=== PATIENT | female | born 1970 | race African-American/Black ===

== ENCOUNTER 2017-01-07 17:23 | Observation (INO) | payer SELFPAY ==
[~2017-01-07] VITALS: Ht 165.1 cm; Wt 74.6 kg
[~2017-01-07 17:23] MED LIST: IBUP600T26 PO; METH750T2 PO
[2017-01-07 19:26] VITALS: BP 119/75; PULSE 94; RESP 18; O2SAT 100
--- NOTE | 2017-01-07 19:44 | PD ---
HPI Chief Complaint: Chest Pain Time Seen by Provider: 19:38 Travel History International Travel<30 days: No Contact w/Intl Traveler<30days: No Traveled to known affect area: No History of Present Illness HPI 46-year-old female presents to the emergency department for evaluation of chest pain that began about 7 hours ago. The patient states that just prior to going into work she began to have midsternal chest pressure. States that has been worsening over the past several hours. States that she had her bring her up to our ambulance bay on the back of his bicycle and when she coughed the bicycle and started walking to the doors she became lightheaded and passed out. She states that the chest pain is aggravated with talking. Denies any alleviating factors. Denies any shortness of breath, difficulty breathing, diaphoresis, nausea, vomiting, abdominal pain. Denies any recent travel or surgeries. She has a remote history of tobacco use but no longer smokes cigarettes. Denies any history of heart disease, MO, high blood pressure or hyperlipidemia. Denies any family history of heart disease or MO. She does admit to multiple stressors in her life and states that she has about 2 syncopal events every month for the last year but she has never had chest pain before today. Denies , she is postmenopausal. No other complaints. FOR[facility]LY [facility], LATER [facility] Past Medical History Medical History: Denies Significant Hx ?: Not Past Surgical History Surgical History: No Previous Surgery Social History Alcohol Use: No Tobacco Use: Yes Allergies-Medications (Allergen,Severity, Reaction): Coded Allergies: No Known Allergies (Unverified , 01/07/17) Reported Meds & Prescriptions Reported Meds & Active Scripts Active Review of Systems Except as stated in HPI: all other systems reviewed are Neg Physical Exam Narrative GENERAL: Well-nourished and well-developed pleasant female patient in no acute distress who is nontoxic appearing. SKIN: Warm and dry. HEAD: Normocephalic and atraumatic. EYES: No injection, drainage, or hyphema noted. PERRLA. EOMI. ENT: No nasal drainage noted. Oropharynx is clear. NECK: Supple and the trachea is midline. CARDIOVASCULAR: Regular rate and rhythm. RESPIRATORY: Breath sounds are equal bilaterally with no accessory muscle use, wheezing, rhonchi, or crackles. GASTROINTESTINAL: Abdomen is soft, non-tender, and nondistended. MUSCULOSKELETAL: No obvious deformities, swelling, cyanosis, or ecchymosis is present throughout the upper and lower extremities. Patient has full range of motion without any signs of neurovascular compromise. NEUROLOGICAL: Awake, alert, and oriented. Normal speech and gait. Cranial nerves are grossly intact. Data Data Last Documented VS Vital Signs Date Time Temp Pulse Resp B/P Pulse Ox O2 Delivery O2 Flow Rate FiO2 01/07/17 20:16 98 01/07/17 20:16 Room Air 01/07/17 19:26 94 18 119/75 Orders Electrocardiogram (01/07/17 19:34) Ckmb (Isoenzyme) Profile (01/07/17 19:34) Complete Blood Count With Diff (01/07/17 19:34) Comprehensive Metabolic Panel (01/07/17 19:34) D-Dimer (01/07/17 19:34) Magnesium (Mg) (01/07/17 19:34) Prothrombin Time / Inr (Pt) (01/07/17 19:34) Act Partial Throm Time (Ptt) (01/07/17 19:34) Troponin I (01/07/17 19:34) Chest, Single Ap (01/07/17 19:34) Ecg Monitoring (01/07/17 19:34) Bilateral Bp Monitoring (01/07/17 19:34) Iv Access Insert/Monitor (01/07/17 19:34) Oximetry (01/07/17 19:34) Oxygen Administration (01/07/17 19:34) Aspirin Chew (Aspirin Chew) (01/07/17 19:45) Sodium Chloride 0.9% Flush (Ns Flush) (01/07/17 19:45) Ondansetron Inj (Zofran Inj) (01/07/17 19:45) Morphine Inj (Morphine Inj) (01/07/17 20:00) CKMB (01/07/17 20:05) CKMB% (01/07/17 20:05) Admit Order (Ed Use Only) (01/07/17 21:11) Labs Laboratory Tests Test 01/07/17 20:05 White Blood Count 8.3 TH/MM3 Red Blood Count 4.31 MIL/MM3 Hemoglobin 13.8 GM/DL Hematocrit 40.5 % Mean Corpuscular Volume 94.1 FL Mean Corpuscular Hemoglobin 32.2 PG Mean Corpuscular Hemoglobin 34.2 % Concent Red Cell Distribution Width 12.9 % Platelet Count 321 TH/MM3 Mean Platelet Volume 7.6 FL Neutrophils (%) (Auto) 62.4 % Lymphocytes (%) (Auto) 31.7 % Monocytes (%) (Auto) 5.2 % Eosinophils (%) (Auto) 0.2 % Basophils (%) (Auto) 0.5 % Neutrophils # (Auto) 5.2 TH/MM3 Lymphocytes # (Auto) 2.6 TH/MM3 Monocytes # (Auto) 0.4 TH/MM3 Eosinophils # (Auto) 0.0 TH/MM3 Basophils # (Auto) 0.0 TH/MM3 CBC Comment DIFF FINAL Differential Comment Prothrombin Time 10.5 SEC Prothromb Time International 1.0 RATIO Ratio Activated Partial 24.2 SEC Thromboplast Time D-Dimer Quantitative (PE/DVT) 0.19 MG/L FEU Sodium Level 138 MEQ/L Potassium Level 3.4 MEQ/L Chloride Level 108 MEQ/L Carbon Dioxide Level 21.9 MEQ/L Anion Gap 8 MEQ/L Blood Urea Nitrogen 12 MG/DL Creatinine 0.81 MG/DL Estimat Glomerular Filtration 92 ML/MIN Rate Random Glucose 78 MG/DL Calcium Level 9.3 MG/DL Magnesium Level 2.2 MG/DL Total Bilirubin 0.4 MG/DL Aspartate Amino Transf 18 U/L (AST/SGOT) Alanine Aminotransferase 28 U/L (ALT/SGPT) Alkaline Phosphatase 128 U/L Total Creatine Kinase 196 U/L Creatine Kinase MB 2.5 NG/ML Creatine Kinase MB % 1.3 % Troponin I LESS THAN 0.02 NG/ML Total Protein 7.9 GM/DL Albumin 3.8 GM/DL [facility] Medical Decision Making Medical Screen Exam Complete: Yes Emergency Medical Condition: Yes Differential Diagnosis ACS versus pleurisy versus PE versus anxiety Narrative Course 46-year-old female presents to the emergency room for evaluation of midsternal chest pressure that began earlier today. Patient is afebrile, vital signs are stable. She did experience an episode of syncope as well. Physical examination is unremarkable. IV access is obtained, labs been drawn and sent. Patient is administered aspirin and morphine. EKG shows sinus rhythm with no acute ST elevations or depressions. Patient signed out to my attending physician Dr. Ibarra who will assume care of the patient and disposition. Flor William Jan 07, 2017 19:44
[2017-01-07] MEDS ORDERED: MORPHINE SULFATE 4 MG/ML INJ IV PUSH ONE (19:45)
[2017-01-07] MEDS ORDERED: ASPIRIN 81 MG CHEW TAB PO ONE (19:45)
[2017-01-07] MEDS ORDERED: SODIUM CHLORIDE 0.9% FLUSH 10 ML FLUSH IVF PRN (19:45)
[2017-01-07] MEDS ORDERED: ONDANSETRON HCL 4 MG/2 ML VIAL IV PUSH ONE (19:45)
[2017-01-07] MEDS ORDERED: MORPHINE SULFATE 8 MG/ML INJ IV PUSH ONE (20:00)
[2017-01-07 20:16] VITALS: O2SAT 98
--- NOTE | 2017-01-07 20:28 | RADRPT ---
EXAM DATE/TIME: 01/07/2017 19:51 [facility] COMPARISON: No previous studies available for comparison. INDICATIONS : Chest pain MEDICAL HISTORY : None. SURGICAL HISTORY : None. ENCOUNTER: Initial ACUITY: 3 days PAIN SCORE: 7/10 LOCATION: Bilateral chest FINDINGS: A single view of the chest demonstrates the lungs to be symmetrically aerated without evidence of mas s, infiltrate or effusion. The cardiomediastinal contours are unremarkable. Osseous structures are intact. CONCLUSION: No acute disease. Haja Kahn MD on January 07, 2017 at 20:26 Board Certified Radiologist. This report was verified electronically.
[2017-01-07 20:30] LABS: AUTOMATED NEUTROPHIL # 5.2 TH/MM3 (1.8-7.7); BASOPHIL % 0.5 % (0.0-2.0); EOSINOPHIL % 0.2 % (0.0-4.0); HEMATOCRIT 40.5 % (35.0-46.0); HEMO FLAGS DIFF FINAL; LYMPH % 31.7 % (9.0-44.0); LYMPHOCYTE # 2.6 TH/MM3 (1.0-4.8); MEAN CELL VOLUME 94.1 FL (80.0-100.0); MEAN CORPUSCULAR HEMOGLOBIN 32.2 PG (27.0-34.0); MEAN CORPUSCULAR HGB CONC 34.2 % (32.0-36.0); MONO % 5.2 % (0.0-8.0); NEUT % 62.4 % (16.0-70.0); PLATELET COUNT 321 TH/MM3 (150-450); RED BLOOD COUNT 4.31 MIL/MM3 (4.00-5.30); RED CELL DISTRIBUTION WIDTH 12.9 % (11.6-17.2); WHITE BLOOD COUNT 8.3 TH/MM3 (4.0-11.0)
[2017-01-07 20:52] LABS: ANION GAP 8 MEQ/L (5-15); AST (GOT) 18 U/L (15-37); BICARBONATE 21.9 MEQ/L (21.0-32.0); BLOOD UREA NITROGEN 12 MG/DL (7-18); CHLORIDE 108 MEQ/L (98-107); GLOMERULAR FILTRATION RATE 92 ML/MIN (>89); MAGNESIUM 2.2 MG/DL (1.5-2.5); POTASSIUM 3.4 MEQ/L (3.5-5.1); SODIUM (NA) 138 MEQ/L (136-145)
[2017-01-07 20:53] LABS: ALT (GPT) 28 U/L (10-53)
[2017-01-07 20:56] LABS: ALKALINE PHOSPHATASE 128 U/L (45-117); CREATINE KINASE 196 U/L (26-192); TOTAL BILIRUBIN ADULT 0.4 MG/DL (0.2-1.0)
[2017-01-07 20:59] LABS: APTT (PATIENT) 24.2 SEC (24.3-30.1); PROTHROMBIN TIME - PATIENT 10.5 SEC (9.8-11.6)
[2017-01-07 21:09] LABS: CKMB 2.5 NG/ML (0.5-3.6)
--- NOTE | 2017-01-07 21:11 | PD ---
Data Data Last Documented VS Vital Signs Date Time Temp Pulse Resp B/P Pulse Ox O2 Delivery O2 Flow Rate FiO2 01/07/17 20:16 98 01/07/17 20:16 Room Air 01/07/17 19:26 94 18 119/75 Orders Electrocardiogram (01/07/17 19:34) Ckmb (Isoenzyme) Profile (01/07/17 19:34) Complete Blood Count With Diff (01/07/17 19:34) Comprehensive Metabolic Panel (01/07/17 19:34) D-Dimer (01/07/17 19:34) Magnesium (Mg) (01/07/17 19:34) Prothrombin Time / Inr (Pt) (01/07/17 19:34) Act Partial Throm Time (Ptt) (01/07/17 19:34) Troponin I (01/07/17 19:34) Chest, Single Ap (01/07/17 19:34) Ecg Monitoring (01/07/17 19:34) Bilateral Bp Monitoring (01/07/17 19:34) Iv Access Insert/Monitor (01/07/17 19:34) Oximetry (01/07/17 19:34) Oxygen Administration (01/07/17 19:34) Aspirin Chew (Aspirin Chew) (01/07/17 19:45) Sodium Chloride 0.9% Flush (Ns Flush) (01/07/17 19:45) Ondansetron Inj (Zofran Inj) (01/07/17 19:45) Morphine Inj (Morphine Inj) (01/07/17 20:00) CKMB (01/07/17 20:05) CKMB% (01/07/17 20:05) Labs Laboratory Tests Test 01/07/17 20:05 White Blood Count 8.3 TH/MM3 Red Blood Count 4.31 MIL/MM3 Hemoglobin 13.8 GM/DL Hematocrit 40.5 % Mean Corpuscular Volume 94.1 FL Mean Corpuscular Hemoglobin 32.2 PG Mean Corpuscular Hemoglobin 34.2 % Concent Red Cell Distribution Width 12.9 % Platelet Count 321 TH/MM3 Mean Platelet Volume 7.6 FL Neutrophils (%) (Auto) 62.4 % Lymphocytes (%) (Auto) 31.7 % Monocytes (%) (Auto) 5.2 % Eosinophils (%) (Auto) 0.2 % Basophils (%) (Auto) 0.5 % Neutrophils # (Auto) 5.2 TH/MM3 Lymphocytes # (Auto) 2.6 TH/MM3 Monocytes # (Auto) 0.4 TH/MM3 Eosinophils # (Auto) 0.0 TH/MM3 Basophils # (Auto) 0.0 TH/MM3 CBC Comment DIFF FINAL Differential Comment Prothrombin Time 10.5 SEC Prothromb Time International 1.0 RATIO Ratio Activated Partial 24.2 SEC Thromboplast Time D-Dimer Quantitative (PE/DVT) 0.19 MG/L FEU Sodium Level 138 MEQ/L Potassium Level 3.4 MEQ/L Chloride Level 108 MEQ/L Carbon Dioxide Level 21.9 MEQ/L Anion Gap 8 MEQ/L Blood Urea Nitrogen 12 MG/DL Creatinine 0.81 MG/DL Estimat Glomerular Filtration 92 ML/MIN Rate Random Glucose 78 MG/DL Calcium Level 9.3 MG/DL Magnesium Level 2.2 MG/DL Total Bilirubin 0.4 MG/DL Aspartate Amino Transf 18 U/L (AST/SGOT) Alanine Aminotransferase 28 U/L (ALT/SGPT) Alkaline Phosphatase 128 U/L Total Creatine Kinase 196 U/L Troponin I LESS THAN 0.02 NG/ML Total Protein 7.9 GM/DL Albumin 3.8 GM/DL [facility] Supervised Visit with SHIRLENE: Yes Narrative Course I, Dr. Ibarra, have reviewed the advance practice practitioner's documentation and am in agreement, met with the patient face to face, made the diagnosis, and the medical decision making was done by me. See her note for further details. Briefly this a 46-year-old female who is here for evaluation of substernal chest pain. Pain is described as pressure, moderate, worse with talking. No dyspnea. No known history of cardiac disease. She reports extensive family history of heart disease. She told my PA that she has passed out about twice a month for the last year, however she tells me that she believes she may have passed out twice this year. She believes she may have had a syncopal episode today, but is not really sure. Currently the pain is 5 out of 10. On my assessment the patient is sleeping comfortably. Her EKG shows sinus, rate 80, normal axis, normal intervals, nonspecific T-wave abnormality, no ST segment abnormalities. Vital signs are within normal limits. CBC is unremarkable. CMP is essentially unremarkable. Cardiac enzymes are negative. D-dimer is negative at 0.19. Chest x-ray shows no acute disease. The patient was provided aspirin. She'll be admitted to the chest pain center for further cardiac evaluation. Diagnosis Primary Impression: Chest pain Qualified Code: R07.9 - Chest pain, unspecified type Admitting Information Admitting Physician Requests: Prince Gustafson MD Jan 07, 2017 21:11
[2017-01-07 22:34] VITALS: BP 119/75
[2017-01-07 22:42] VITALS: BP 129/83; PULSE 72; RESP 18; O2SAT 97
[2017-01-07] MEDS ORDERED: SODIUM CHLORIDE 0.9% FLUSH 10 ML FLUSH IV FLUSH PRN (23:15)
[2017-01-08] VITALS (16 sets, daily range): BP systolic 97–109; BP diastolic 55–71; PULSE 57–78; RESP 15–18; TEMP 97.6–99; O2SAT 98–100
[2017-01-08 00:31] LABS: CREATINE KINASE 183 U/L (26-192)
[2017-01-08 02:58] LABS: CREATINE KINASE 160 U/L (26-192)
[2017-01-08 03:14] LABS: CKMB 1.8 NG/ML (0.5-3.6)
--- NOTE | 2017-01-08 08:00 | EKG ---
Date Performed: 01/07/2017 Time Performed: 23:19:12 PTAGE: 46 years EKG: Sinus rhythm BORDERLINE ECG PREVIOUS TRACING : 01/07/2017 23.18 Since previous tracing, no significant change noted DOCTOR: Kevin Smith Interpretating Date/Time 01/08/2017 08:11:42
--- NOTE | 2017-01-08 08:00 | EKG ---
Date Performed: 01/07/2017 Time Performed: 19:35:38 PTAGE: 46 years EKG: Sinus rhythm NONSPECIFIC T-WAVE ABNORMALITY BORDERLINE ECG NO PREVIOUS TRACING DOCTOR: Kevin Smith Interpretating Date/Time 01/08/2017 08:00:20
--- NOTE | 2017-01-08 08:00 | EKG ---
Date Performed: 01/08/2017 Time Performed: 03:09:24 PTAGE: 46 years EKG: SINUS BRADYCARDIA BORDERLINE ECG PREVIOUS TRACING : 01/07/2017 23.19 Since previous tracing, no significant change noted DOCTOR: Kevin Smith Interpretating Date/Time 01/08/2017 07:58:58
--- NOTE | 2017-01-08 08:46 | HHI.HP ---
HPI Primary Care Physician No Primary Care Physician Chief Complaint Chest pain History of Present Illness This is a 46-year-old female that presents to the ED to evaluate a chest discomfort that began yesterday around noon and lasted throughout the night. The discomfort is no longer present. She describes as a tightness. It is in the center of her chest. It does not radiate. She states that she was short of breath while walking into the emergency department and passed out. She states her boyfriend caught her and brought her in. He was sleeping in the examination room and was unable to give further information as far as how long she passed out her other specifics regarding it. She then states that she has been passing out on average about 2 times a month for the past year. She states that it is a sudden occurrence without any warnings. No sensation of a rapidly or irregularly. Denies headache, malaise, dizziness. Denies . Review of Systems General: Patient denies fevers, chills recent, and recent travel HEENT: Patient denies headache, sore throat, difficulty swallowing. Cardiovascular: Has the chest discomfort as mentioned above. Denies sensation of heart beating rapidly or irregularly. She has since episodes about twice a month for the past year. Respiratory: She was short of breath while walking into the emergency department last evening. Denies shortness inspirational chest discomfort. Denies coughing wheezing or hemoptysis. GI: Patient denies nausea, vomiting, diarrhea, abdominal pain, bloody stools. Musculoskeletal: Patient denies joint pain or edema. Denies calf pain or edema. Neurovascular: Patient denies numbness, tingling, weakness in extremities. Denies headache. Endocrine: Denies polyuria and polydipsia. Hematologic: Denies easy bruising. Skin: Denies rash or itching. Past Family Social History Allergies: Coded Allergies: No Known Allergies (Unverified , 01/07/17) Past Medical History Tobacco abuse. Denies hypertension, hyperlipidemia, diabetes, and CAD. Past Surgical History Denies. Reported Medications Reported Meds & Active Scripts Active Active Ordered Medications Current Medications Medications (Trade) Dose Ordered Sig/Keanu Route Start Time Stop Time Status Last Admin (NS Flush) 2 ml UNSCH PRN IVF 01/07/17 19:45 (NS Flush) 2 ml UNSCH PRN IV FLUSH 01/07/17 23:15 (NS Flush) 2 ml BID IV FLUSH 01/08/17 09:00 Family History Denies family history of CAD. Social History Patient smokes one half pack of cigarettes daily. Denies alcohol or illicit drugs. Physical Exam Vital Signs Vital Signs Date Time Temp Pulse Resp B/P Pulse Ox O2 Delivery O2 Flow Rate FiO2 01/08/17 07:48 97.9 63 16 107/67 100 01/08/17 07:18 98 Nasal Cannula 2.00 01/08/17 04:44 100/71 01/08/17 04:04 61 01/08/17 03:13 97.6 57 15 97/68 99 01/08/17 01:15 69 01/08/17 00:59 97.6 67 17 102/66 100 01/08/17 00:00 98 01/07/17 22:42 72 18 129/83 97 Room Air 01/07/17 22:34 119/75 01/07/17 20:16 98 01/07/17 20:16 Room Air 01/07/17 19:26 94 18 119/75 100 Physical Exam GENERAL: This is a well-nourished, well-developed patient, in no apparent distress. Patient speaks in clear complete sentences. Patient is pleasant. HEENT: Head is atraumatic and normocephalic. Neck is supple without lymphadenopathy and trachea is midline. No JVD or carotid bruits. CARDIOVASCULAR: Regular rate and rhythm without murmurs, gallops, or rubs. RESPIRATORY: Clear to auscultation. Breath sounds equal bilaterally. No wheezes , rales, or rhonchi. Chest wall is nontender. No use of accessory muscles. GASTROINTESTINAL: Abdomen is nontender, nondistended. Abdomen soft. No obvious pulsatile mass or bruit. No CVA tenderness. Strong femoral pulses bilaterally. Normal bowel sounds in all quadrants. MUSCULOSKELETAL: Patient is moving upper and lower extremities freely. No calf tenderness or edema, no Homans sign. Strong pulses in upper and lower extremities. NEUROLOGICAL: Patient is alert and oriented. Cranial nerves 2-12 are grossly intact. No focal deficits and speech is clear. SKIN: No rash and turgor is normal. Laboratory Laboratory Tests Test 01/07/17 01/07/17 01/08/17 20:05 23:56 02:27 White Blood Count 8.3 Red Blood Count 4.31 Hemoglobin 13.8 Hematocrit 40.5 Mean Corpuscular Volume 94.1 Mean Corpuscular Hemoglobin 32.2 Mean Corpuscular Hemoglobin 34.2 Concent Red Cell Distribution Width 12.9 Platelet Count 321 Mean Platelet Volume 7.6 Neutrophils (%) (Auto) 62.4 Lymphocytes (%) (Auto) 31.7 Monocytes (%) (Auto) 5.2 Eosinophils (%) (Auto) 0.2 Basophils (%) (Auto) 0.5 Neutrophils # (Auto) 5.2 Lymphocytes # (Auto) 2.6 Monocytes # (Auto) 0.4 Eosinophils # (Auto) 0.0 Basophils # (Auto) 0.0 CBC Comment DIFF FINAL Differential Comment Prothrombin Time 10.5 Prothromb Time International 1.0 Ratio Activated Partial 24.2 Thromboplast Time D-Dimer Quantitative (PE/DVT) 0.19 Sodium Level 138 Potassium Level 3.4 Chloride Level 108 Carbon Dioxide Level 21.9 Anion Gap 8 Blood Urea Nitrogen 12 Creatinine 0.81 Estimat Glomerular Filtration 92 Rate Random Glucose 78 Calcium Level 9.3 Magnesium Level 2.2 Total Bilirubin 0.4 Aspartate Amino Transf 18 (AST/SGOT) Alanine Aminotransferase 28 (ALT/SGPT) Alkaline Phosphatase 128 Total Creatine Kinase 196 183 160 Creatine Kinase MB 2.5 2.0 1.8 Creatine Kinase MB % 1.3 Troponin I LESS THAN 0.02 LESS THAN 0.02 LESS THAN 0.02 Total Protein 7.9 Albumin 3.8 Result Diagram: 01/07/17200401/07/172004 Imaging Last Impressions Chest X-Ray 01/07/17 1934 Signed Impressions: Service Date/Time: Saturday, January 07, 2017 19:51 - CONCLUSION: No acute disease. Haja Kahn MD Course EKGs have sinus rhythm without significant ST segment depressions or elevations. There are nonspecific T-wave changes. Assessment and Plan Assessment and Plan * Chest pain: Patient has had serial cardiac enzymes and EKGs for ruling out purposes. She has been evaluated by Dr. Kevin Smith of cardiology and the chest pain center. Telemetry monitoring does not reveal any arrhythmias. She will undergo a Lexiscan. She'll be discharged home if the Lexiscan was nonischemic with instructions to follow-up with local physician. * Tobacco abuse: Patient has been counseled on the importance of smoking cessation. Patient is stable at this time. She is agreeable to this plan. Mike Irwin Jan 08, 2017 08:46
[2017-01-08] MEDS: SODIUM CHLORIDE 0.9% FLUSH 10 ML FLUSH IV FLUSH SCH ×2 (09:00→21:52)
[2017-01-08] MEDS ORDERED: REGADENOSON INJ 0.4 MG/5 ML SYR ONE (09:34)
[2017-01-08] MEDS ORDERED: ACETAMINOPHEN 325 MG TAB PO ONE (11:45)
--- NOTE | 2017-01-08 12:13 | RADRPT ---
EXAM DATE/TIME: 01/08/2017 09:08 [facility] COMPARISON: No previous studies available for comparison. INDICATIONS : Midsternal chest pain with dizziness and syncope. Angina. DOSE: 26.3 mCi Tc99m Myoview at stress. 8.6 mCi Tc99m Myoview at rest. 0.4 mg Lexiscan STRESS SYMPTOMS: Dyspnea, nausea and headache. EJECTION FRACTION: 51% MEDICAL HISTORY : Smoker. SURGICAL HISTORY : None. ENCOUNTER: Initial ACUITY: 1 day PAIN SCALE: 7/10 LOCATION: Midsternal chest TECHNIQUE: The patient underwent pharmacologic stress with infusion of prescribed dose. Continuous ECG tracing was monitored during stress. Gated SPECT imaging was performed after stress and conventional SPECT i maging was performed at rest. The examination was performed on a SPECT/CT scanner, both attenuation and non-corrected datasets were reviewed. FINDINGS: DISTRIBUTION: The maximum perfused segment at stress is in the septal wall. PERFUSION STUDY: There is moderately diminished relative radiotracer delivery to the anterolateral wall and mild-moder ate redistribution suspected. GATED STUDY: There is intact wall motion and thickening without hypokinetic or dyskinetic segments. CONCLUSION: Moderate sized area of moderately diminished perfusion involving the anterolateral wall with some deg ree of redistribution. RISK CATEGORY: Intermediate (1-3% Annual Mortality Rate) Derrick Saravia MD on January 08, 2017 at 12:03 Board Certified Radiologist. This report was verified electronically.
[2017-01-08] MEDS ORDERED: SODIUM CHLOR 0.9% 1000 ML INJ 1,000 ML IV SCH (12:59)
[2017-01-08] MEDS ORDERED: ATORVASTATIN 10 MG TAB PO SCH (13:00)
[2017-01-08] MEDS ORDERED: METOPROLOL TARTRATE 25 MG TAB PO SCH (13:00)
[2017-01-08] MEDS ORDERED: POTASSIUM CHLORIDE 20 MEQ CONTROLLED RELEASE TAB PO ONE (13:00)
[2017-01-08] MEDS: SODIUM CHLOR 0.9% 1000 ML INJ 1,000 ML IV SCH ×2 (13:25→23:25)
[2017-01-08] MEDS ORDERED: DIAZEPAM 5 MG TAB PO SCH (13:30)
[2017-01-08] MEDS ORDERED: diphenhydrAMINE HCL 50 MG CAP PO SCH (13:30)
[2017-01-08] MEDS ORDERED: SODIUM CHLORIDE 0.9% FLUSH 10 ML FLUSH IV FLUSH PRN (13:30)
[2017-01-08] MEDS ORDERED: ASPIRIN 325 MG TAB PO SCH (13:30)
--- NOTE | 2017-01-08 13:42 | HHI.PR ---
Subjective Remarks 46-year-old female with no significant past medical history who was transferred from chest pain center to the hospitalist service for positive stress test. The patient continues to complain of off-and-on chest discomfort. She states these episodes of chest pain have been occurring more frequently lately. She has been having occasional syncopal episodes as well. She reports feeling lightheaded whenever she stands up. Discussed with cardiology, plan for cardiac catheterization tomorrow. The patient denies any tobacco use. All questions answered to the best my ability. Objective Vitals Vital Signs Date Time Temp Pulse Resp B/P Pulse Ox O2 Delivery O2 Flow Rate FiO2 01/08/17 11:22 99.0 67 15 108/57 99 01/08/17 08:00 59 01/08/17 07:48 97.9 63 16 107/67 100 01/08/17 07:18 98 Nasal Cannula 2.00 01/08/17 04:44 100/71 01/08/17 04:04 61 01/08/17 03:13 97.6 57 15 97/68 99 01/08/17 01:15 69 01/08/17 00:59 97.6 67 17 102/66 100 01/08/17 00:00 98 01/07/17 22:42 72 18 129/83 97 Room Air 01/07/17 22:34 119/75 01/07/17 20:16 98 01/07/17 20:16 Room Air 01/07/17 19:26 94 18 119/75 100 I/O 01/07/17 01/07/17 01/07/17 01/08/17 01/08/17 01/08/17 07:00 15:00 23:00 07:00 15:00 23:00 Intake Total 0 ml Balance 0 ml Intake Oral 0 ml # Voids 1 Result Diagram: 01/07/17200401/07/17 2005 Imaging Last Impressions Myocardial Perfusion Scan Nuc Med 01/08/17 0000 Signed Impressions: Service Date/Time: Sunday, January 08, 2017 09:08 - CONCLUSION: Moderate sized area of moderately diminished perfusion involving the anterolateral wall with some degree of redistribution. RISK CATEGORY: Intermediate (1-3%% Annual Mortality Rate) Derrick Saravia MD Chest X-Ray 01/07/17 193 Signed Impressions: Service Date/Time: Saturday, January 07, 2017 19:51 - CONCLUSION: No acute disease. Haja Kahn MD Objective Remarks GENERAL: Well-developed well-nourished. In no acute distress. SKIN: Warm and dry. No lesions noted. HEENT: Normocephalic. Pupils equal and round. Mucous membranes pink and moist. CARDIOVASCULAR: Regular rate and rhythm. No murmur appreciated. RESPIRATORY: No accessory muscle use. Clear to auscultation. Breath sounds equal bilaterally. GASTROINTESTINAL: Abdomen soft, non-tender, nondistended. Bowel sounds x4. MUSCULOSKELETAL: No obvious deformities. No clubbing or cyanosis. No edema. NEUROLOGICAL: Awake and alert. No focal neurological deficits. Moves upper and lower extremities spontaneously. Normal speech. PSYCHIATRIC: Appropriate mood and affect; insight and judgment normal. A/P Assessment and Plan 46-year-old female with no significant past medical history who was transferred from chest pain center to the hospitalist service for positive stress test Chest pain with possible coronary artery disease: Reviewed: Cardiac enzymes negative 3. EKG shows NSR with nonspecific T-wave changes. Stress test shows moderate size area of moderate diminished perfusion involving the anterolateral wall with some degree of redistribution. D-dimer within normal limits. -With possible ischemic stress test, cardiology was consulted, discussed with Dr. Rivers, plan for cardiac catheterization tomorrow morning -Started on aspirin, Nitropaste, and metoprolol Syncopal episodes: Possibly secondary to underlying coronary artery disease as above. Discussed with cardiology, Dr. Rivers, likely vasovagal. -BP is soft, caution with nitroglycerin and metoprolol -Check echocardiogram, carotid ultrasound, orthostatics, UDS -Monitor on telemetry DVT prophylaxis: SCDs Discharge Planning Follow-up cardiology recommendations. Ruben Hirsch Jan 08, 2017 13:42
--- NOTE | 2017-01-08 14:08 | MB ---
cc: SABAS MORRISON M.D. DATE OF CONSULTATION: 01/08/2017 REASON FOR CONSULTATION Evaluation of abnormal stress test. HISTORY OF PRESENT ILLNESS Jemima Headley is a 46-year-old -[place] female who came with chest pain and now has had an abnormal nuclear stress test. Her chest pain symptoms were somewhat vague. She says initially that happened about 12 noon yesterday when she was sitting. Then I got the impression that it actually started at 7:30 in the morning and was there all day long. She states it is slightly present even now. It is like a pressure tightness in the middle of her chest. No other associated symptoms. Nothing aggravates it or makes it better or worse. She quit smoking in 2001. She has no known risk factors, specifically no history of hypertension or diabetes. No family history of coronary artery disease. Lipid status is unknown. She did not have angina with discomfort. She has a history of intermittent syncope, says it is usually preceded by lightheadedness with last episode yesterday. SOCIAL HISTORY She is single. No children. Works as a cook. Past history of smoking, has an occasional beer. PAST MEDICAL HISTORY Unremarkable. She does recall having an enlarged thyroid. PAST SURGICAL HISTORY Unremarkable. ALLERGIES None. FAMILY HISTORY Mother has diabetes. Father's history is unknown. She has three brothers who are diabetic. REVIEW OF SYSTEMS Negative for bleeding. The remaining review of systems is negative. PHYSICAL EXAMINATION GENERAL: A well-developed, well-nourished -[place] female in no acute distress. VITAL SIGNS: She has been normotensive the entire time she has been here. Vital signs are charted. HEENT: Unremarkable. NECK: Supple. There is no JVD. Thyroid mildly enlarged. There are no carotid bruits. CHEST: Clear to auscultation. CARDIAC: Normal first and second heart sounds. Regular rate and rhythm. 1/6 systolic ejection murmur. ABDOMEN: Soft, nontender. No masses or organomegaly. EXTREMITIES: No clubbing, cyanosis or edema. NEUROLOGIC: Alert and oriented. Grossly nonfocal. LABORATORY Laboratories are charted. Creatinine 0.81. Troponins negative x3. Potassium 3.4; supplements were given. Hematocrit 40.5. EKG EKG showed normal sinus rhythm. Voltage is somewhat high. There is some very slight nonspecific ST change in III, not enough to call ischemia. IMAGING Chest x-ray shows no acute disease. Lexiscan nuclear stress test shows a moderate-sized area of decreased perfusion involving the anterolateral wall with some redistribution. IMPRESSION This is a 46-year-old -[place] female. She is an ex-smoker. She has had chest discomfort compatible with possible angina, except it lasted all day long and there are no troponin changes. PLAN I think it would be best to proceed with a diagnostic cardiac cath. I obtained informed consent. The lab is horribly backed up today due to one of the labs breaking, so I put her on first thing tomorrow morning. I explained the possibility that she may need revascularization and possible stent if she is found to have blockage. The risks were discussed. Further therapy to be determined. MD JACOB Cox/JAY /1:35 PM /1:58 PM
[2017-01-08] MEDS ORDERED: PILL SPLITTER OTHER PRN (14:15)
[2017-01-08] MEDS: NITROGLYCERIN 2% OINT 1 GM PACKET TOPICAL SCH ×2 (14:25→21:52)
[2017-01-08 14:28] LABS: HDL CHOLESTEROL 60.8 MG/DL (40.0-60.0)
--- NOTE | 2017-01-08 14:31 | RADRPT ---
EXAM DATE/TIME: 01/08/2017 13:59 [facility] COMPARISON: No previous studies available for comparison. INDICATIONS : Syncope. MEDICAL HISTORY : Chest pain. SURGICAL HISTORY : None. ENCOUNTER: Initial ACUITY: 1 day PAIN SCORE: 2/10 LOCATION: Bilateral neck PEAK SYSTOLIC VELOCITIES (cm/sec): ICA/CCA RATIO: Right: 0.7 Left: 0.8 ICA: Right: 77 Left: 110 CCA: Right: 105 Left: 143 ECA: Right: 73 Left: 95 VERTEBRAL: Right: 73 antegrade Left: 78 antegrade Elevated flow velocities and ICA/CCA ratios have been found to correlate with increased degrees of vessel stenosis, calculated as percentage of diameter relative to a normal segment of distal ICA/CCA FINDINGS: RIGHT CAROTID: No significant stenosis is visualized. The waveforms are within normal limits. LEFT CAROTID: No significant stenosis is visualized. The waveforms are within normal limits. VERTEBRAL ARTERIES: Antegrade flow is seen in both vertebral arteries. MISCELLANEOUS: None. CONCLUSION: No evidence of flow-limiting carotid stenosis. Derrick Saravia MD on January 08, 2017 at 14:27 Board Certified Radiologist. This report was verified electronically.
[2017-01-08] MEDS: METOPROLOL TARTRATE 25 MG TAB PO SCH (21:52)
[2017-01-09] VITALS (7 sets, daily range): BP systolic 92–106; BP diastolic 51–70; PULSE 57–80; RESP 16–20; TEMP 97.8–98.6; O2SAT 96–99
[2017-01-09] MEDS: NITROGLYCERIN 2% OINT 1 GM PACKET TOPICAL SCH (05:23)
[2017-01-09 06:35] LABS: AUTOMATED NEUTROPHIL # 2.5 TH/MM3 (1.8-7.7); BASOPHIL % 0.3 % (0.0-2.0); EOSINOPHIL # 0.1 TH/MM3 (0-0.4); HEMATOCRIT 37.8 % (35.0-46.0); HEMO FLAGS DIFF FINAL; LYMPH % 46.1 % (9.0-44.0); LYMPHOCYTE # 2.5 TH/MM3 (1.0-4.8); MEAN CELL VOLUME 94.5 FL (80.0-100.0); MEAN CORPUSCULAR HEMOGLOBIN 30.9 PG (27.0-34.0); MEAN CORPUSCULAR HGB CONC 32.7 % (32.0-36.0); MONO % 5.5 % (0.0-8.0); NEUT % 47.1 % (16.0-70.0); PLATELET COUNT 286 TH/MM3 (150-450); RED CELL DISTRIBUTION WIDTH 13.3 % (11.6-17.2); WHITE BLOOD COUNT 5.4 TH/MM3 (4.0-11.0)
[2017-01-09 06:37] LABS: POTASSIUM 3.8 MEQ/L (3.5-5.1)
[2017-01-09 06:40] LABS: HDL CHOLESTEROL 56.8 MG/DL (40.0-60.0)
[2017-01-09] MEDS ORDERED: HEPARIN-NS/PF INJ 500 ML ONE (07:14)
[2017-01-09] MEDS ORDERED: MIDAZOLAM HCL 2 MG/2 ML VIAL ONE (07:15)
[2017-01-09 07:33] LABS: BETA HCG QUANT 1 MIU/ML (0-5)
[2017-01-09] MEDS ORDERED: SODIUM CHLOR 0.9% 1000 ML INJ 1,000 ML IV SCH (08:11)
[2017-01-09] MEDS ORDERED: ONDANSETRON HCL 4 MG/2 ML VIAL IV PRN (08:15)
[2017-01-09] MEDS ORDERED: BACITRACIN OINT 0.9 GM PKT TOP ONE (08:15)
[2017-01-09] MEDS ORDERED: MISC INFORMATION XX ONE (08:15)
--- NOTE | 2017-01-09 08:25 | CATHPROC ---
[employer] HIS Report Study Information Study Number Admission Scheduled Start Study Start [id number] 01/07/2017 01/09/2017 Jan 09 2017 7:15AM Referring Institution Admit Source Facility Department 1 Emergency department [facility] [employer] Physician and Clinical Staff Initial Steven Cronin Assistant Laboratory Directordianne Roth RN, Agueda Simeon RN Recorder Malu LentzRT(R) (BS) Scrub Rut EduardoRT(R) Procedures Performed Procedure Location (Site) Vessel Name Angiogram LV LV Ventricle Coronary Angiograms LCA Left Coronary Coronary Angiograms RCA Right Coronary Equipment Time Distillery Laborer Description Size Mfg Part Number Used/Scraped TRANSDUCER, TRUWAVE [id number] 07:23 ARRIAGA CERVANTES * Used W/STOCKCOCK *[id number] *[id number] *[id number] PIGTAIL ANG. 145 INFINITI [id number] CATHETER *[id number] 07:23 [employer] PACK, CCL CUSTOM * Used *[id number] 07:23 K[employer]uan PACER PEN, SKIN DUAL W/ RULER * Used *[id number] 07:23 [employer] MEDICAL SHEATH, FR6.5 PRELUDE 11CM FR 6.5 038ACT Used *[id number] 07:23 [employer] MEDICAL WIRE, 3MMJ .035 180CM 180CM Used *[id number] 07:23 NAMIC MANIFOLD, 4 PORT * Used *[id number] 07:23 NYCOMED OMNIPAQUE, 350 MG, 100ML 100ML [id number] Used [id number] 07:23 [employer] BLANKET,WARM AIR CCL * Used *[id number] History: Current Medications Medication Dosage/Unit Route Frequency Last Date/Time Taken ASA Beta Cecil NTG Patch History: Allergies Allergy Reaction No Known Allergies History: Risk Factors Family History of Hypertension Dyslipidemia Previous OK Previous Heart Failure Premature CAD No No No No No Prior Valve Prior PCI Prior CABG Surgery No No No Cerebrovascular Peripheral Artery Chronic Lung On Dialysis Diabetes Disease Disease Disease No No No No No History: Symptoms/Diagnosis Selection Items Chest pain Syncope History: Stress Tests Stress or Imaging Studies Performed Yes Standard Exercise Stress Test No Stress Echo No Stress Test SPECT Stress Test SPECT Result Stress Test SPECT Ischemia Risk/Extent Yes Positive Intermediate Stress Test CMR No Cardiac CTA Coronary Calcium Score No No History: Other Current Smoker Method Quit Packs a Day Years Used Pack Years No Cigarettes 15 Years Ago 1 3 3 Labs Hgb (g/dl) Hct (%) WBC (l/cumm) Platelets (thousands) 11.60-17.00 35.00-51.00 4.00-11.00 150.00-450.00 12.0 37 5.4 286 Glucose (mg/dl) BUN (mg/dl) Creatinine (mg/dl) BUN:Creatinine (1:x) 74.00-106.00 7.00-18.00 0.50-1.30 10.00-20.00 107 13 0.7 18.6 Na (meq/l) K (meq/l) 136.00-145.00 3.50-5.10 140 3.8 INR (PTT:PT) 0.90-1.10 1 Troponin I (ng/ml) CPK-MB (ng/ML) 0.02-0.05 0.50-3.60 0.02 Not Drawn Medication Medication Total Dose (Bolus/Oral) Medication Total Dosage/Unit 1% XYLOCAINE 20 mL FENTANYL 50 mcg Medications (Bolus/Oral) Medication Time Given Dosage/Unit Administered By Reason 1% XYLOCAINE 01/09/2017 7:45:29 AM 20 mL Steven Rivers 20 mL 1% XYLOCAINE given in lab by Steven Rivers in Right Groin via Subcutaneous. FENTANYL 01/09/2017 7:47:58 AM 50 mcg Agueda Su 50 mcg FENTANYL given in lab by Agueda Su RN in Right Hand via Peripheral IV. Medication (Drip) Medication Time Given Dosage/Unit Concentration/Unit Diluent (ml) Solution IV Solutions 01/09/2017 7:21:20 AM 0 mL (IV) 500 NaCl .9 IV Solutions given in lab by Jason Roth RN in Right Hand via Peripheral IV. Pump/Drip Flow = 20 ml/ hr using NaCl .9. Initial Case Assessment Cardiovascular HR Rhythm NIBP Chest Pain 59 reg 114/69 0 Edema Present Skin color Skin None Normal Warm Dry Respiration - General Respiration Rate SpO2 (%) (B/min) 17 99 Initial Case Assessment Cardiovascular HR Rhythm NIBP Chest Pain 66 reg 103/52 0 Edema Present Skin color Skin None Normal Warm Dry Neurological State Oriented to time-place- Alert Moves all extremities person Respiration - General Respiration Rate SpO2 (%) (B/min) 17 96 Chronological Log Time Study Chronological Log 7:14:45 Patient arrived via Bed. 7:14:46 Patient Name, D.O.B, / Armband Verified By R.N. 7:14:47 Consent signed by the physician and the patient and verified by the [employer] staff. 7:14:48 Pre-op and post- op instructions given; patient acknowledges understanding of instructions. 7:14:49 Verbal Stimulation=2 Physical Stimulation=2 Airway=2 Respiration=2 TOTAL=8. (0=absent, 1=li mited, 2=present) 7:14:54 Presedation assessment performed by [employer] Material Inspector RN. 7:15:01 Patient has been NPO for More than 6Hrs. 7:15:02 Skin Breakdown none per pt 7:15:04 Patient Warmer Placed on the Table. 7:15:05 Clarence Prominences Protected 7:15:06 A # 20 IV was noted in the Hand (right). Grade = 0 7:15:08 History and physical on the chart or being dictated. Assessment: Initial Case, HR=59 BPM, Rhythm=reg, HDLC=059/69 mmhg, Chest Pain=0, Edema=None, Co aureliano=Normal, 7:15:10 Skin = Warm, Dry Respiration: Resp=17 B/min, SpO2=99 % 7:21:20 IV Solutions given in lab by Jason Roth RN in Right Hand via Peripheral IV. Pump/Drip Butch w = 20 ml/hr using NaCl .9. Vitals capture started with the following parameters, Patient=Adult, Interval=5 min, Initial Pr guwmny=139 mmHg, 7:21:25 Deflation Rate=5 mmHg 7:21:51 Reference ECG taken 7:22:10 HR=65 bpm, CDMP=315/69 mmhg, SpO2=98.0 %, Resp=17 B/min, Pain=0, Sylvie=10, Nunez=2 7:27:05 HR=64 bpm, QMQC=898/67 mmhg, SpO2=99.0 %, Resp=12 B/min, Pain=0, Sylvie=10, Nunez=2 7:28:45 Bilateral groins prepped with 2% chlorhexidine, and with a 3 min. waiting time. 7:32:02 HR=61 bpm, YKBX=795/68 mmhg, SpO2=98.0 %, Resp=13 B/min, Pain=0, Sylvie=10, Nunez=2 7:32:13 MD paged 7:33:45 Pressure channel 1 zeroed. 7:37:03 HR=60 bpm, NELQ=006/61 mmhg, SpO2=96.0 %, Resp=28 B/min, Pain=0, Sylvie=10, Nunez=2 7:39:06 MD arrived 7:42:02 HR=66 bpm, RAIH=716/59 mmhg, SpO2=98.0 %, Resp=26 B/min, Pain=0, Sylvie=10, Nunez=2 Time Out. Correct patient, correct procedure,correct physician, power injector loaded with contr ast with surgical team 7:43:52 present. Time Out Concurred by MD, individual staff in procedure 7:44:08 Case Start 7:45:29 20 mL 1% XYLOCAINE given in lab by Steven Rivers in Right Groin via Subcutaneous. 7:47:05 HR=79 bpm, TUFX=963/65 mmhg, SpO2=99.0 %, Resp=9 B/min, Pain=0, Sylvie=10, Nunez=2 7:47:58 50 mcg FENTANYL given in lab by Agueda Su RN in Right Hand via Peripheral IV. 7:49:42 Access site was Right Femoral Artery. 7:49:57 A SHEATH, FR6.5 PRELUDE 11CM FR 6.5 was advanced into the Fem Art (right) using the Percutan eous technique. A PIGTAIL ANG. 145 INFINITI CATHETER FR 6 was advanced over a wire. OMNIPAQUE, 350 MG, 100ML 100 ML was 7:50:37 used for injections. Recorded Pressure: LV, HR=70, Condition=Condition 1 7:51:27 (Left Ventricle) LV 96//7 7:52:04 HR=66 bpm, NIBP=97/56 mmhg, SpO2=97.0 %, Resp=17 B/min, Pain=0, Sylvie=10, Nunez=2 7:52:54 The LV was injected at 10 cc/sec for a total of 40. OMNIPAQUE, 350 MG, 100ML 100ML used. Recorded Pressure: LV, Ao, HR=79, Condition=Condition 1 7:53:34 (Left Ventricle) LV 82/-1/7, (Aorta) Ao 85/55/69 7:54:05 Catheter was removed A JL 4.0 INFINITI CATHETER FR 6 was advanced over a wire. OMNIPAQUE, 350 MG, 100ML 100ML was use d for 7:54:06 injections. 7:55:35 The LCA was injected and visualized at various angles. OMNIPAQUE, 350 MG, 100ML 100ML used. Recorded Pressure: Ao, HR=63, Condition=Condition 1 7:55:41 (Aorta) Ao 83/54/68 7:56:39 Catheter was removed A 3DRC INFINITI CATHETER FR 6 was advanced over a wire. OMNIPAQUE, 350 MG, 100ML 100ML was used for 7:56:40 injections. 7:57:03 HR=61 bpm, NGPH=225/52 mmhg, SpO2=94.0 %, Resp=11 B/min, Pain=0, Sylvie=10, Nunez=2 7:58:27 The RCA was injected and visualized at various angles. OMNIPAQUE, 350 MG, 100ML 100ML used. 7:59:05 Catheter was removed 7:59:08 Case End Assessment: Initial Case, HR=66 BPM, Rhythm=reg, JRDH=564/52 mmhg, Chest Pain=0, Edema=None, Col or=Normal, Skin = Warm, Dry 7:59:35 Neurological: State=Alert, Ox3, WIGGINS Respiration: Resp=17 B/min, SpO2=96 % 7:59:55 Catheter(s) removed without difficulty 7:59:58 No case complications noted. 7:59:59 Cine recording checked. 8:00:01 Bedside Report will be given. 8:00:02 Contrast Scanned 8:00:04 Verbal Stimulation=2 Physical Stimulation=2 Airway=2 Respiration=2 TOTAL=8. (0=absent, 1=l imited, 2=present) 8:00:39 Sheath removed; pressure applied to access site. 8:02:04 HR=67 bpm, RRFX=692/56 mmhg, SpO2=96.0 %, Resp=12 B/min, Pain=0, Sylvie=10, Nunez=2 8:07:03 HR=71 bpm, NIBP=98/59 mmhg, SpO2=97.0 %, Resp=14 B/min, Pain=0, Sylvie=10, Nunez=2 8:12:04 HR=62 bpm, NIBP=98/52 mmhg, SpO2=97.0 %, Resp=14 B/min, Pain=0, Sylvie=10, Nunez=2 8:17:03 HR=66 bpm, NIBP=99/53 mmhg, SpO2=95.0 %, Resp=9 B/min, Pain=0, Sylvie=10, Nunez=2 8:22:02 HR=61 bpm, YUVU=188/51 mmhg, SpO2=98.0 %, Resp=15 B/min, Pain=0, Sylvie=10, Nunez=2 8:23:38 Sterile dressing applied to site 8:24:01 Vitals capture stopped. 8:26:44 [facility] End Study - Contrast Media Used In Study Contrast Total Opened (mL) Total Used (mL) Total Wasted (mL) Omnipaque 70 70 0 End Study - Maximum Contrast Load Max Contrast Load (mL) 438.3 End Study - Radiation Exposure Fluoro Time (minutes) 1.4 End Study - Sheaths Sheaths Pulled By Sheath Hold Time (min) Rut Eduardo End Study - Patient Disposition Complications Transferred To Interventional Outcome No [employer] Holding No attempt made
[2017-01-09] MEDS: ASPIRIN 81 MG CHEW TAB PO SCH (09:00)
[2017-01-09] MEDS: METOPROLOL TARTRATE 25 MG TAB PO SCH ×2 (09:00→19:40)
[2017-01-09] MEDS: SODIUM CHLORIDE 0.9% FLUSH 10 ML FLUSH IV FLUSH SCH ×2 (09:00→19:40)
--- NOTE | 2017-01-09 09:09 | TR ---
Date Performed: 01/08/2017 Time Performed: 09:49:29 DOCTOR: Akbar Cobb DRUG LIST: CLINICAL HISTORY: REASON FOR TEST: CHEST PAIN REASON FOR ENDING: OBSERVATION: CONCLUSION: Lexiscan stress test was performed under standard four minute protocol. Radionuclide was injected one minute prior to ending the test. No definite electrocardiographic abormalities were present to suggest ischemia. Nuclear imaging and interpretation are pending. COMMENTS: Scanning suggests an area of ischemia.
--- NOTE | 2017-01-09 09:14 | MA ---
cc: SABAS MORRISON M.D. DATE 01/09/2017 PROCEDURE PERFORMED 1. Left heart catheterization 2. Left ventriculography 3. Coronary angiography DESCRIPTION OF THE PROCEDURE The patient brought to the cardiac laborer general in a fasting state. She received an additional 50 mcg of IV fentanyl for sedation. Using 1% lidocaine for local anesthesia, a 6-1/2 [place] sheath was inserted in the right femoral artery. Left ventricular pressure was recorded using a pigtail catheter followed by left ventriculography and then a pullback. Coronary angiography was completed using a left four Dorita and a 3DRC. At the end of the procedure, the sheath was pulled manually. There were no complications. FINDINGS 1. Hemodynamics. Left ventricular pressure was 82/7, aortic pressure was 83/54 a mean of 68. 2. Left ventriculography. Left ventriculography shows normal left ventricular function, EF of 60%. 3. Coronary angiography coronary circulation is right-dominant. All three coronaries appear normal. CONCLUSIONS Normal LV function. Normal LVEDP and normal coronary arteries. PLAN We will discontinue antianginal therapy. Pain is likely noncardiac. We will clear her for discharge later today. MD JACOB Cox/LEANDRA /8:24 AM /9:10 AM
[2017-01-09] MEDS ORDERED: IOHEXOL 350 MG/ML 100 ML BTL (for Cath Lab) OTHER ONE (10:02)
--- NOTE | 2017-01-09 10:13 | HHI.PR ---
Subjective Remarks The patient was seen following catheterization. She had no acute complaints. She said she passes out during times of high anxiety. She says she is unconscious for 1-2 minutes at a time. She is unaware of any seizure activity. She wants to know what's going on with her. Discussed with nursing. Objective Vitals Vital Signs Date Time Temp Pulse Resp B/P Pulse Ox O2 Delivery O2 Flow Rate FiO2 01/09/17 08:34 98 Room Air 01/09/17 04:16 97.8 70 16 104/70 99 01/09/17 03:43 66 01/09/17 00:03 98.6 57 16 104/61 97 01/08/17 23:26 70 01/08/17 20:08 98.7 78 18 109/55 98 01/08/17 19:55 68 01/08/17 15:18 98.0 70 16 99/67 99 01/08/17 15:00 68 01/08/17 12:00 75 01/08/17 11:22 99.0 67 15 108/57 99 I/O 01/08/17 01/08/17 01/08/17 01/09/17 01/09/17 01/09/17 07:00 15:00 23:00 07:00 15:00 23:00 Intake Total 0 ml 100 ml Balance 0 ml 100 ml Intake Oral 0 ml IV Total 100 ml # Voids 1 Result Diagram: 01/09/17 0518 01/09/17 0518 Imaging Last Impressions Myocardial Perfusion Scan Nuc Med 01/08/17 0000 Signed Impressions: Service Date/Time: Sunday, January 08, 2017 09:08 - CONCLUSION: Moderate sized area of moderately diminished perfusion involving the anterolateral wall with some degree of redistribution. RISK CATEGORY: Intermediate (1-3%% Annual Mortality Rate) Derrick Saravia MD Carotid Artery Ultrasound 01/08/17 0000 Signed Impressions: Service Date/Time: Sunday, January 08, 2017 13:59 - CONCLUSION: No evidence of flow-limiting carotid stenosis. Derrick Saravia MD Chest X-Ray 01/07/17 193 Signed Impressions: Service Date/Time: Saturday, January 07, 2017 19:51 - CONCLUSION: No acute disease. Haja Kahn MD Objective Remarks GENERAL: Well-developed well-nourished. In no acute distress. SKIN: Warm and dry. No lesions noted. HEENT: Normocephalic. Pupils equal and round. Mucous membranes pink and moist. CARDIOVASCULAR: Regular rate and rhythm. No murmur appreciated. RESPIRATORY: No accessory muscle use. Clear to auscultation. Breath sounds equal bilaterally. GASTROINTESTINAL: Abdomen soft, non-tender, nondistended. Bowel sounds x4. MUSCULOSKELETAL: No obvious deformities. No clubbing or cyanosis. No edema. NEUROLOGICAL: Awake and alert. No focal neurological deficits. Moves upper and lower extremities spontaneously. Normal speech. PSYCHIATRIC: Appropriate mood and affect; insight and judgment normal. Procedures Cardiac catheterization Medications and IVs Current Medications Medications (Trade) Dose Ordered Sig/Keanu Route Start Time Stop Time Status Last Admin (NS Flush) 2 ml UNSCH PRN IV FLUSH 01/07/17 23:15 (NS Flush) 2 ml BID IV FLUSH 01/08/17 09:00 01/08/17 21:52 (Lopressor) 12.5 mg Q12HR PO 01/08/17 21:00 01/08/17 21:52 (NS Flush) 2 ml UNSCH PRN IV FLUSH 01/08/17 13:30 Aspirin 81 mg 81 mg DAILY PO 01/09/17 09:00 (NS 1000 ml Inj) 1,000 ml @ 100 mls/hr Q10H IV 01/08/17 13:25 01/13/17 13:24 01/08/17 13:25 Miscellaneous 1 ea 1 ea UNSCH PRN OTHER 01/08/17 14:15 (NS 1000 ml Inj) 1,000 ml @ 100 mls/hr Q10H IV 01/09/17 08:11 01/09/17 14:10 01/09/17 07:38 (Percocet 5-325 Mg) 1 tab Q4H PRN PO 01/09/17 08:15 (Zofran Inj) 4 mg Q4H PRN IV 01/09/17 08:15 A/P Assessment and Plan 46-year-old female with no significant past medical history who was transferred from chest pain center to the hospitalist service for positive stress test Chest pain Cardiac enzymes negative 3. EKG shows NSR with nonspecific T-wave changes. Stress test shows moderate size area of moderate diminished perfusion involving the anterolateral wall with some degree of redistribution. D-dimer within normal limits. With possible ischemic stress test, cardiology was consulted, discussed with Dr. Rivers. Cardiac catheterization negative for obstructive coronary disease. She was cleared for discharge by cardiology. - Telemetry. - Continue current cardiac regimen. Syncopal episodes Seems to occur during periods of stress. Carotid ultrasound negative. Likely vasovagal. - Check echocardiogram, orthostatics, EEG. - Monitor on telemetry. - Trial of Ativan. DVT prophylaxis: SCDs Discharge Planning Anticipate d/c in AM once syncopal work-up is complete Haja Murillo DO Jan 09, 2017 10:13
[2017-01-09] MEDS: SODIUM CHLOR 0.9% 1000 ML INJ 1,000 ML IV SCH (19:25)
[2017-01-09] MEDS: oxyCODONE/ACETAMINOPHEN 5 MG/325 MG TAB PO PRN ×2 (19:55→23:44)
--- NOTE | 2017-01-09 20:10 | MG ---
cc: NICKI GARCIA Lab No: [id number] Date: 01/09/17 Age: 46 Sex: F Race: A 46-year-old, hyperventilation not performed, cardiac cath, syncope. Fentanyl Versed Valium An 8 Hz 60 microvolt symmetric posterior rhythm is noted. Some diffuse alpha and beta rhythms are seen. Hyperventilation not performed. Photic stimulation is performed without significant posterior driving. No epileptiform or seizure activity is noted. There are no hemisphere asymmetries. IMPRESSION A normal EEG. No evidence for a focal diffuse abnormality MD YANA Nowak/ /5:04 PM /8:05 PM
[2017-01-10] VITALS: BP 96/58; PULSE 77; RESP 18; TEMP 98; O2SAT 98
[2017-01-10 04:00] VITALS: BP 98/64; PULSE 67; RESP 16; TEMP 97.9; O2SAT 100
[2017-01-10] MEDS: SODIUM CHLOR 0.9% 1000 ML INJ 1,000 ML IV SCH (04:44)
[2017-01-10] MEDS: oxyCODONE/ACETAMINOPHEN 5 MG/325 MG TAB PO PRN ×2 (07:30→11:26)
[2017-01-10 08:00] VITALS: BP_SYST 106; BP_SYST 107; BP_DIAS 64; BP_DIAS 65; BP_DIAS 69; PULSE 68; RESP 18; TEMP 98.1; O2SAT 96
[2017-01-10] MEDS: ASPIRIN 81 MG CHEW TAB PO SCH (09:01)
[2017-01-10] MEDS: SODIUM CHLORIDE 0.9% FLUSH 10 ML FLUSH IV FLUSH SCH (09:03)
[2017-01-10] MEDS: METOPROLOL TARTRATE 25 MG TAB PO SCH (09:04)
[2017-01-10] MEDS ORDERED: OXYC1TAB63 PO (11:31)
--- NOTE | 2017-01-10 11:31 | HHI.DCPOC ---
Discharge Care Plan Diagnosis: (1) Chest pain (2) Syncopal episodes Goals to Promote Your Health * To prevent worsening of your condition and complications * To maintain your health at the optimal level Directions to Meet Your Goals Take your medications as prescribed Follow your dietary instruction Follow activity as directed Keep your appointments as scheduled Take your immunizations and boosters as scheduled If your symptoms worsen call your PCP, if no PCP go to Urgent Care Center or Emergency Room Smoking is Dangerous to Your Health. Avoid second hand smoke Call the 24-hour hour crisis hotline for domestic abuse at Haja Murillo DO Jan 10, 2017 11:31
--- NOTE | 2017-01-10 11:37 | HHI.DS ---
Discharge Summary Admission Date Jan 07, 2017 at 21:13 Discharge Date: Jan 10, 2017 Admitting Diagnosis chest pain (1) Chest pain ICD Code: R07.9 Diagnosis: Principal (2) Syncopal episodes ICD Code: R55 Procedures Cardiac catheterization Brief History - From Admission This is a 46-year-old female that presents to the ED to evaluate a chest discomfort that began yesterday around noon and lasted throughout the night. The discomfort is no longer present. She describes as a tightness. It is in the center of her chest. It does not radiate. She states that she was short of breath while walking into the emergency department and passed out. She states her boyfriend caught her and brought her in. He was sleeping in the examination room and was unable to give further information as far as how long she passed out her other specifics regarding it. She then states that she has been passing out on average about 2 times a month for the past year. She states that it is a sudden occurrence without any warnings. No sensation of a rapidly or irregularly. Denies headache, malaise, dizziness. Denies . CBC/BMP: 01/09/17 0518 01/09/17 0518 Significant Findings Laboratory Tests Test 01/07/17 01/07/17 01/08/17 01/09/17 20:05 23:56 02:27 05:18 Activated Partial 24.2 SEC Thromboplast Time (24.3-30.1) Potassium Level 3.4 MEQ/L (3.5-5.1) Chloride Level 108 MEQ/L 108 MEQ/L (98-107) (98-107) Alkaline Phosphatase 128 U/L (45-117) Total Creatine Kinase 196 U/L (26-192) Troponin I LESS THAN 0.02 LESS THAN 0.02 LESS THAN 0.02 NG/ML NG/ML NG/ML (0.02-0.05) (0.02-0.05) (0.02-0.05) HDL Cholesterol 60.8 MG/DL (40.0-60.0) Lymphocytes (%) (Auto) 46.1 % (9.0-44.0) Random Glucose 107 MG/DL (74-106) Imaging Last Impressions Myocardial Perfusion Scan Nuc Med 01/08/17 0000 Signed Impressions: Service Date/Time: Sunday, January 08, 2017 09:08 - CONCLUSION: Moderate sized area of moderately diminished perfusion involving the anterolateral wall with some degree of redistribution. RISK CATEGORY: Intermediate (1-3%% Annual Mortality Rate) Derrick Saravia MD Carotid Artery Ultrasound 01/08/17 0000 Signed Impressions: Service Date/Time: Sunday, January 08, 2017 13:59 - CONCLUSION: No evidence of flow-limiting carotid stenosis. Derrick Saravia MD Chest X-Ray 01/07/17 1934 Signed Impressions: Service Date/Time: Saturday, January 07, 2017 19:51 - CONCLUSION: No acute disease. Haja Kahn MD PE at Discharge GENERAL: Well-developed well-nourished. In no acute distress. SKIN: Warm and dry. No lesions noted. HEENT: Normocephalic. Pupils equal and round. Mucous membranes pink and moist. CARDIOVASCULAR: Regular rate and rhythm. No murmur appreciated. RESPIRATORY: No accessory muscle use. Clear to auscultation. Breath sounds equal bilaterally. GASTROINTESTINAL: Abdomen soft, non-tender, nondistended. Bowel sounds x4. MUSCULOSKELETAL: No obvious deformities. No clubbing or cyanosis. No edema. NEUROLOGICAL: Awake and alert. No focal neurological deficits. Moves upper and lower extremities spontaneously. Normal speech. PSYCHIATRIC: Appropriate mood and affect; insight and judgment normal. Pt update on day of discharge The patient was feeling well and wanted to go home. She had a little bit of pain at the catheterization site. She said she will follow up at the community clinic. Discussed with nursing at the bedside. Hospital Course Chest pain The pt was admitted to the chest pain center. Cardiac enzymes negative 3. EKG showed NSR with nonspecific T-wave changes. Stress test shows moderate size area of moderate diminished perfusion involving the anterolateral wall with some degree of redistribution. D-dimer within normal limits. Cardiology was consulted. Cardiac catheterization negative for obstructive coronary disease. She was cleared for discharge by cardiology. She was monitored on telemetry. She will follow up at the community clinic. Syncopal episodes Seems to occur during periods of stress. Carotid ultrasound negative. Orthostatics negative. EEG negative for seizure activity. She was monitored on telemetry. No symptoms while in the hospital. An echo was done and results are pending at this time. The pt will follow up the results with her PCP. Pt Condition on Discharge: Good Discharge Disposition: Discharge Home Discharge Time: <= 30 minutes Discharge Instructions DIET: Follow Instructions for: As Tolerated, No Restrictions Activities you can perform: Weight Bearing as Herve Follow up Referrals: PCP Follow-up - [address] Jeffrey New Medications: Oxycodone-Acetaminophen (Oxycodone-Acetaminophen) 5-325 mg Tab 1 TAB PO Q6HR PRN PAIN SCALE 3 TO 10 #10 TAB Haja Murillo DO Jan 10, 2017 11:37
[2017-01-10 12:00] VITALS: BP 98/65; PULSE 75; RESP 18; TEMP 98.2; O2SAT 97
== END 2017-01-10 13:26 | disposition home or self-care (01) ==
LOC: NEPD 17:23 → NEDA 21:13 → NEPFCDU 01-08 01:39 → HCIS 01-09 07:40 → N04B 01-09 14:03 → N04A 01-09 15:50
PROVIDERS: ADMIT Hospitalist; ATTEND Hospitalist
DX: R07.9 Chest pain, unspecified (principal); R55 Syncope and collapse; F17.210 Nicotine dependence, cigarettes, uncomplicated; R94.39 Abnormal result of other cardiovascular function study
CPT/HCPCS: 71010; 78452; 80048; 80053; 80061; 82550; 82552; 83735; 84484; 84702; 85025; 85379; 85610; 85730; 93005; 93017; 93458; 93880; 95819; 96374; 96375; 99285; A9502; C1769; C1893; G0378; J1644; J2250; J2270; J2405; J2785; J3010; J7030; Q0163; Q9967